=== PATIENT | male | born 1965 | race Caucasian/White ===

== ENCOUNTER 2017-12-18 22:56 | Emergency (ER) | payer BC ==
[~2017-12-18] VITALS: Ht 167.6 cm; Wt 108.9 kg
[2017-12-18] MEDS ORDERED: NIFEDIPINE 10 MG CAP PO ONE (23:15)
[2017-12-19] MEDS ORDERED: SODIUM CHLORIDE 0.9% 1000ML 1,000 ML IV ONE (00:15)
[2017-12-19 00:18] LABS: BASOPHILS % 0.5 % (0.0-1.0); EOSINOPHILS % 0.5 % (0.0-6.0); HEMATOCRIT 43.6 % (38.2-49.6); HEMOGLOBIN 14.8 g/dL (14.0-18.0); LYMPHOCYTES # (AUTO) 1.9 (1.0-3.2); LYMPHOCYTES % 22.2 % (18.0-39.1); MEAN CORPUSCULAR HEMOGLOBIN 28.4 pg (28-32); MEAN CORPUSCULAR HGB CONC 33.9 g/dL (31-35); MEAN CORPUSCULAR VOLUME 83.7 fL (81-99); MONOCYTES # (AUTO) 0.5 (0.2-0.8); MONOCYTES % 5.3 % (4.4-11.3); NEUTROPHILS # (AUTO) 6.1 (2.1-6.9); NEUTROPHILS % 71.3 % (38.7-80.0); PLATELET COUNT 196 x10e3/uL (140-360); RED BLOOD COUNT 5.21 x10e6/uL (4.3-5.7); RED CELL DISTRIBUTION WIDTH 13.8 % (11.7-14.4)
[2017-12-19 00:33] LABS: ALBUMIN 3.8 g/dL (3.5-5.0); CALCIUM 9.4 mg/dL (8.4-10.2); CREATININE, SERUM 1.43 mg/dL (0.72-1.25)
[2017-12-19] MEDS ORDERED: POTASSIUM CHLORIDE 20 MEQ TAB CR PO STA (00:44)
[2017-12-19] MEDS ORDERED: LISINOPRIL 10 MG TAB PO ONE (00:45)
[2017-12-19 00:50] LABS: CREATINE KINASE MB 0.8 ng/mL (0-5.0)
[2017-12-19 02:48] VITALS: BP 169/111
== END 2017-12-19 03:03 | disposition home or self-care (01) ==
LOC: ER 22:56
DX: I10 Essential (primary) hypertension (principal)
CPT/HCPCS: 36415; 80053; 82550; 82553; 84484; 85025; 93005; 99284